=== PATIENT | male | born 1975 | race Two or more races ===

== ENCOUNTER 2024-03-15 12:45 | Day surgery (SDC) | payer BC, SELFPAY ==
[2024-03-14 13:34] VITALS: BMI 34.2
[2024-03-15] VITALS (8 sets, daily range): BP systolic 124–166; BP diastolic 78–108; PULSE 79–96; RESP 11–19; TEMP 36.1–36.6; O2SAT 92–98; BMI 34.4
[2024-03-15] MEDS: SODIUM CHLORIDE 0.9% 100 ML IV (13:48)
[2024-03-15] MEDS: MIDAZOLAM INJ 1 MG/ML VIAL 2 ML (ASD USE ONLY) 2 MG IV (13:56)
[2024-03-15] MEDS: fentaNYL CIT INJ 50 mCg/ML AMP 2ML (ASD USE ONLY) IV (13:57)
--- NOTE | 2024-03-15 14:47 | SUR.PHASEII ---
1407: Pt received for recovery. Report from [facility]. Pt sleepy. Easily aroused. Resp even, unlabored. VS stable. No c/o pain, discomfort. 1433: Pt more awake, alert. VS stable. Denies pain. Sitting up tolerating po fluids with no difficulty swallowing and no n/v. 1447: Pt fully awake, oriented x3. Pt assisted to restroom. Ambulation steady. Pt and friend stated understanding of discharge instructions. Pt also instructed to pick up attendant his prescription from his pharmacy in [place]. Pt discharged from [facility] in stable condition.
--- NOTE | 2024-03-15 15:12 | SUR.PHASEII ---
1447: For discharge note pt was not instructed to picker packer a prescription. This was entered in error.
== END 2024-03-15 14:47 | disposition home or self-care (01) ==
PROVIDERS: PCP Internal Medicine; Referring Provider Surgery; Visit Provider Surgery
PROC: 0DBE8ZX Excision of Large Intestine, Via Natural or Artificial Opening Endoscopic, Diagnostic (ICD-10-PCS; CPT 45380; principal; 2024-03-15 14:30)
DX: Z12.11 Encounter for screening for malignant neoplasm of colon (principal)
CPT/HCPCS: 45378; A4217; J2250; J3010; J7050